=== PATIENT | female | born 1990 | race Caucasian/White ===

== ENCOUNTER → 2016-05-08 | Outpatient (CLI) | payer BC ==
--- NOTE | 2016-05-09 04:58 | REP ---
Clinical: Acute cystitis. Technique: Real time gallegos scale and color ultrasound examination using curved array transducer. Findings: The bilateral kidneys are normal in contour, size, echogenicity, and reniform shape without hydronephrosis, nephrolithiasis, cystic or renal mass lesion. Right kidney measures 10.0 x 4.1 x 3.4 cm. Left kidney measures 10.8 x 3.5 x 5.1 cm. The bladder is normal in appearance currently measuring approximately 8.8 x 6.4 x 2.7 cm. Impression: Normal renal ultrasound Incidental subcentimeter hemangioma in the liver. Signed by Masoud Tim MD 05/09/2016 04:49 A
== END ==
LOC: M RAD 13:29
PROVIDERS: ATTEND Specialist
DX: N30.00 Acute cystitis without hematuria (principal); D18.03 Hemangioma of intra-abdominal structures; Z87.440 Personal history of urinary (tract) infections

== ENCOUNTER → 2016-05-21 | Outpatient (REF) | payer BC ==
[2016-05-21 20:41] LABS: LUTEINIZING HORMONE 1.8 mIU/mL; PROGESTERONE 0.3 NG/ML; PROLACTIN 7.5 NG/ML
[2016-05-21 20:42] LABS: FOLLICLE STIMULATING HORMONE 1.4 mIU/mL
== END ==
LOC: M LAB REF 16:36
PROVIDERS: ATTEND Internal Medicine
DX: R68.82 Decreased libido (principal)

== ENCOUNTER → 2017-10-02 | Outpatient (REF) | payer BC ==
[2017-10-02 13:14] LABS: BACTERIA, URINE AUTO 1+ (NEGATIVE); RBC, URINE AUTO 0 /HPF (0-3); SQUAMOUS EPITHELIAL CELL UR AU 0 /HPF (0-6); WBC, URINE AUTO 2 /HPF (0-3)
== END ==
LOC: M SMT 12:32
DX: N30.00 Acute cystitis without hematuria (principal)
CPT/HCPCS: 81015

== ENCOUNTER → 2018-04-16 | Outpatient (REF) | payer BC ==
[2018-04-16 19:05] LABS: BACTERIA, URINE AUTO 1+ (NEGATIVE); CALCIUM OXALATE CRYSTALS SMALL; MUCUS, URINE SMALL (NEGATIVE); RBC, URINE AUTO 2 /HPF (0-3); SQUAMOUS EPITHELIAL CELL UR AU 0 /HPF (0-6); WBC, URINE AUTO 10 /HPF (0-3)
== END ==
LOC: M SMT 16:50
PROVIDERS: ATTEND Specialist
DX: N30.00 Acute cystitis without hematuria (principal)

== ENCOUNTER → 2018-10-13 | Outpatient (CLI) | payer BC ==
[2018-10-13 16:59] LABS: CHOLESTEROL RISK RATIO 3.383 (<5)
== END ==
LOC: M LRY 12:11
PROVIDERS: ATTEND Internal Medicine
DX: Z00.00 Encounter for general adult medical examination without abnormal findings (principal)

== ENCOUNTER → 2020-01-13 | Outpatient (CLI) | payer BC ==
[~2020-01-13] MED LIST: BACI1TAB4 PO; PREN1TAB9 PO
== END ==
LOC: M LABSMTC 09:58
PROVIDERS: ATTEND Anesthesiology
DX: Z01.812 Encounter for preprocedural laboratory examination (principal); Z20.828 Contact with and (suspected) exposure to other viral communicable diseases

== ENCOUNTER 2020-01-14 13:56 | Day surgery (SDC) | payer BC ==
[~2020-01-14] VITALS: Ht 157.5 cm; Wt 60.8 kg
[~2020-01-14 13:56] MED LIST changes: +LR 1,000 ML IV ONE; +RHOGAM 300 MCG (1500 IU) INJ (J2790) IM PRN
[2020-01-14 14:28] LABS: HEMATOCRIT 39.5 % (36.0-47.0); HEMOGLOBIN 13.3 g/dl (12.0-15.5); MEAN CORPUSCULAR HEMOGLOBIN 28.8 pg (27.0-33.0); MEAN CORPUSCULAR HGB CONC 33.7 g/dl (32.0-36.5); MEAN CORPUSCULAR VOLUME 85.5 fl (80.0-96.0); PLATELET COUNT, AUTOMATED 316 10^3/uL (150-450); RED BLOOD COUNT 4.62 10^6/uL (4.00-5.40); WHITE BLOOD COUNT 11.1 10^3/uL (4.0-10.0)
[2020-01-14] MEDS ORDERED: KETOROLAC 60MG 2ML VIAL As Ordered ONE (16:48)
[2020-01-14] MEDS ORDERED: propofoL 200 MG/20 ML VIAL As Ordered ONE ×2 (16:48→16:49)
[2020-01-14] MEDS ORDERED: dexameTHASONE 4 MG/ML 1ML VIAL (J1100 PER 1MG) As Ordered ONE (16:48)
[2020-01-14] MEDS ORDERED: LIDOCAINE 2% 100MG/5ML SDV (FOR ANES.) As Ordered ONE (16:48)
[2020-01-14] MEDS ORDERED: ONDANSETRON 4MG/2ML VIAL As Ordered ONE (16:48)
[2020-01-14] MEDS ORDERED: MIDAZOLAM INJ 2MG/2ML VIAL (J2250 PER 1MG) As Ordered ONE (16:49)
[2020-01-14] MEDS ORDERED: fentaNYL 100 MCG/2 ML INJECTION (J3010) As Ordered ONE (16:49)
[2020-01-14] MEDS ORDERED: miSOPROStol 200 MCG TAB (S0191) As Ordered ONE (18:12)
--- NOTE | 2020-01-14 18:39 | ROOPDOC ---
[facility] Report Of Operation Report of Operation DATE OF PROCEDURE: 01/14/20 PREPROCEDURE DIAGNOSES: Embryonic demise, 8 weeks. POSTPROCEDURE DIAGNOSES: same. PROCEDURE: D+E+C. SURGEON: Darron Fowler MD ANESTHESIA: general via LMA. ESTIMATED BLOOD LOSS: Approximately 200 mL. COMPLICATIONS: none. FINDINGS: moderate amount of POC's. PROCEDURE NOTE: Patient was taken to the operating room where LMA anesthesia was induced. She was prepped and draped in sterile fashion in the dorsal lithotomy position. The bladder was emptied with a catheter. A speculum was placed in the vagina. The anterior lip of the cervix grasped with a tenaculum. Cervix was dilated with tapered dilators. . A #9 mm suction curet was placed through the internal os. The suction device was activated and the curet was gently rotated until products of conception were noted coming through the suction tubing. Sharp curettage was performed. Due to moderate excess bleeding initially, the patient received 800 g of Misoprostal per rectum. Good hemostasis was then noted. All instruments were removed. Instrument and sponge counts were correct. DARRON FOWLER MD Jan 14, 2020 18:39
[2020-01-14] MEDS ORDERED: ACETAMINOPHEN 500 MG TAB PO ONE (19:00)
[2020-01-14] MEDS ORDERED: LR 1,000 ML IV SCH ×2 (19:00)
[2020-01-14] MEDS ORDERED: fentaNYL 100 MCG/2 ML INJECTION (J3010) IV PRN (19:00)
[2020-01-14] MEDS ORDERED: DOXYCYCLINE HYCLATE 100MG TABLET PO ONE (19:00)
[2020-01-14] MEDS ORDERED: ONDANSETRON 4MG/2ML VIAL IV PRN (19:00)
[2020-01-14] MEDS ORDERED: oxyCODONE 5MG TAB PO PRN (19:00)
[2020-01-14] MEDS ORDERED: HYDROMORPHONE HCL 0.5 MG/ 0.5 ML SYRINGE (J1170 PER 1) IV PRN (19:00)
[2020-01-14 19:30] VITALS: BP 133/83
== END 2020-01-14 19:50 | disposition home or self-care (01) ==
LOC: M SDC 13:56
PROVIDERS: ATTEND Specialist
DX: O02.1 Missed abortion (principal); Z87.440 Personal history of urinary (tract) infections
CPT/HCPCS: 36415; 59820; 85027; 86850; 86900; 86901; 88305; J1100; J1885; J2250; J2405; J3010; U0002

== ENCOUNTER 2020-05-24 10:55 | Emergency (ER) | payer BC ==
[~2020-05-24] VITALS: Ht 157.5 cm; Wt 63.8 kg
[~2020-05-24 10:55] MED LIST changes: -LR 1,000 ML IV ONE; -RHOGAM 300 MCG (1500 IU) INJ (J2790) IM PRN
[2020-05-24] MEDS ORDERED: VITA500C24 PO (11:09)
[2020-05-24] MEDS ORDERED: ASPI81CH33 PO (11:09)
[2020-05-24 12:27] LABS: BASO % 0.5 % (0.0-1.0); EOS # 0.1 10^3/uL (0.0-0.5); EOS % 0.9 % (0.0-3.0); HEMATOCRIT 41.6 % (36.0-47.0); HEMOGLOBIN 14.2 g/dl (12.0-15.5); LYMPH # 2.6 10^3/uL (1.5-5.0); LYMPH % 30.4 % (24.0-44.0); MEAN CORPUSCULAR HEMOGLOBIN 29.2 pg (27.0-33.0); MEAN CORPUSCULAR HGB CONC 34.1 g/dl (32.0-36.5); MEAN CORPUSCULAR VOLUME 85.6 fl (80.0-96.0); MONO # 0.5 10^3/uL (0.0-0.8); NEUTROPHILS # 5.3 10^3/uL (1.5-8.5); PLATELET COUNT, AUTOMATED 326 10^3/uL (150-450); RED BLOOD COUNT 4.86 10^6/uL (4.00-5.40); WHITE BLOOD COUNT 8.6 10^3/uL (4.0-10.0)
[2020-05-24 12:51] LABS: BLOOD UREA NITROGEN 9 MG/DL (7-18); CALCIUM LEVEL 9.7 MG/DL (8.5-10.1); CARBON DIOXIDE LEVEL 24 MEQ/L (21-32); CHLORIDE LEVEL 107 MEQ/L (98-107); CREATININE FOR GFR 0.69 MG/DL (0.55-1.30); GLOMERULAR FILTRATION RATE > 60.0 (>60); GLUCOSE, FASTING 87 MG/DL (70-100); POTASSIUM SERUM 4.1 MEQ/L (3.5-5.1); SODIUM LEVEL 138 MEQ/L (136-145)
[2020-05-24 13:14] LABS: HCG, SERUM QUANTITATIVE 794 MIU/ML
--- NOTE | 2020-05-24 13:39 | REP ---
INDICATION: rlq pain preg. COMPARISON: None. TECHNIQUE: Real-time sonographic evaluation of pelvis performed utilizing transabdominal and endovaginal technique. FINDINGS: The uterus is retroverted and measures 7.7 x 3.8 x 4.9 cm. Endometrial echo complex measures 8 mm in thickness. There is no intrauterine gestational sac identified. The left ovary measures 2.8 x 2.4 x 2.4 cm and contains a somewhat complex cystic structure which may represent a hemorrhagic corpus luteum, measuring 2.5 cm in diameter. Right ovary measures 2.6 x 1.8 x 2.1 cm. There is no evidence of ovarian torsion bilaterally. In the right adnexa, separate from the right ovary, is a rounded structure with a cystic center which measures 1.2 cm in diameter. This is suspicious for ectopic . There is no free fluid. IMPRESSION: Right adnexal mass 1.2 cm in diameter suspicious for ectopic . No intrauterine gestational sac. No free fluid or torsion. <Electronically signed by Alonso Hirsch > 05/24/20 0600
[2020-05-24 14:01] VITALS: BP 131/91
== END 2020-05-24 14:04 | disposition home or self-care (01) ==
LOC: M ED 10:55
DX: O00.90 Unspecified ectopic pregnancy without intrauterine pregnancy (principal); Z79.899 Other long term (current) drug therapy

== ENCOUNTER → 2020-05-26 | Outpatient (REF) | payer BC ==
[~2020-05-26] MED LIST changes: +ASPI81CH33 PO; +VITA500C24 PO
== END ==
LOC: M PLALAB 12:17
PROVIDERS: ATTEND Advanced Practice Midwife
DX: O20.0 Threatened abortion (principal)

== ENCOUNTER → 2020-05-26 | Outpatient (CLI) | payer BC | LOC: M LAB 06:43 | PROVIDERS: ATTEND Nurse Practitioner Family | DX: O20.0 Threatened abortion (principal) ==

== ENCOUNTER → 2020-06-05 | Outpatient (CLI) | payer BC | LOC: M LAB 06:42 | PROVIDERS: ATTEND Advanced Practice Midwife | DX: O03.9 Complete or unspecified spontaneous abortion without complication (principal) ==

== ENCOUNTER → 2020-06-12 | Outpatient (CLI) | payer BC | LOC: M LAB 07:03 | PROVIDERS: ATTEND Advanced Practice Midwife | DX: O03.9 Complete or unspecified spontaneous abortion without complication (principal) ==

== ENCOUNTER → 2020-08-14 | Outpatient (REF) | payer BC | LOC: M LAB REF 18:42 | PROVIDERS: ATTEND Family Medicine | DX: Z13.220 Encounter for screening for lipoid disorders (principal); Z12.4 Encounter for screening for malignant neoplasm of cervix ==

== ENCOUNTER → 2020-08-18 | Outpatient (CLI) | payer BC ==
[2020-08-18 07:17] LABS: BASO % 0.6 % (0.0-1.0); EOS # 0.2 10^3/uL (0.0-0.5); EOS % 3.2 % (0.0-3.0); HEMATOCRIT 42.6 % (36.0-47.0); HEMOGLOBIN 14.1 g/dl (12.0-15.5); LYMPH # 2.4 10^3/uL (1.5-5.0); LYMPH % 35.6 % (24.0-44.0); MEAN CORPUSCULAR HEMOGLOBIN 29.3 pg (27.0-33.0); MEAN CORPUSCULAR HGB CONC 33.1 g/dl (32.0-36.5); MEAN CORPUSCULAR VOLUME 88.6 fl (80.0-96.0); MONO # 0.6 10^3/uL (0.0-0.8); MONO % 8.4 % (2.0-8.0); NEUTROPHILS # 3.5 10^3/uL (1.5-8.5); NEUTROPHILS % 52.1 % (36.0-66.0); PLATELET COUNT, AUTOMATED 301 10^3/uL (150-450); RED BLOOD COUNT 4.81 10^6/uL (4.00-5.40); WHITE BLOOD COUNT 6.8 10^3/uL (4.0-10.0)
[2020-08-18 07:55] LABS: ALBUMIN 4.2 GM/DL (3.2-5.2); ALT/SGPT 20 U/L (12-78); BILIRUBIN,TOTAL 0.3 MG/DL (0.2-1.0); BLOOD UREA NITROGEN 15 MG/DL (7-18); CALCIUM LEVEL 9.1 MG/DL (8.5-10.1); CARBON DIOXIDE LEVEL 27 MEQ/L (21-32); CHLORIDE LEVEL 106 MEQ/L (98-107); CHOLESTEROL LEVEL 196 MG/DL (<200); CREATININE FOR GFR 0.87 MG/DL (0.55-1.30); FREE T4 1.22 NG/DL (0.76-1.46); GLOMERULAR FILTRATION RATE > 60.0 (>60); GLUCOSE, FASTING 90 MG/DL (70-100); HDL CHOLESTEROL 47 MG/DL (>40); LDL CHOLESTEROL 128 MG/DL (<100); NON-HDL-C 149 MG/DL; POTASSIUM SERUM 3.8 MEQ/L (3.5-5.1); SODIUM LEVEL 138 MEQ/L (136-145); TOTAL PROTEIN 8.3 GM/DL (6.4-8.2); TRIGLYCERIDES LEVEL 105 MG/DL (<150)
[2020-08-18 09:36] LABS: TOTAL 25(OH) VITAMIN D 65.4 NG/ML (30.0-100.0)
== END ==
LOC: M LAB 06:51
PROVIDERS: ATTEND Physician Assistant
DX: Z13.220 Encounter for screening for lipoid disorders (principal); Z13.29 Encounter for screening for other suspected endocrine disorder

== ENCOUNTER → 2020-09-19 | Outpatient (CLI) | payer BC ==
[2020-09-19 08:34] LABS: PROGESTERONE 34.57 NG/ML; THYROID STIMULATING HORMONE 1.32 uIU/ML (0.358-3.740)
[2020-09-19 08:35] LABS: ESTRADIOL 173.8 PG/ML
== END ==
LOC: M LAB 07:12
PROVIDERS: ATTEND Obstetrics & Gynecology Reproductive Endocrinology
DX: Z32.00 Encounter for pregnancy test, result unknown (principal)

== ENCOUNTER → 2020-09-21 | Outpatient (CLI) | payer BC ==
[2020-09-21 08:14] LABS: ESTRADIOL 212.2 PG/ML; PROGESTERONE 30.8 NG/ML
== END ==
LOC: M LAB 06:48
PROVIDERS: ATTEND Obstetrics & Gynecology Reproductive Endocrinology
DX: O09.00 Supervision of pregnancy with history of infertility, unspecified trimester (principal)

== ENCOUNTER → 2020-11-16 | Outpatient (CLI) | payer BC ==
[2020-11-16 15:06] LABS: HEMATOCRIT 39.3 % (36.0-47.0); HEMOGLOBIN 13.3 g/dl (12.0-15.5); MEAN CORPUSCULAR HGB CONC 33.8 g/dl (32.0-36.5); MEAN CORPUSCULAR VOLUME 85.6 fl (80.0-96.0); PLATELET COUNT, AUTOMATED 272 10^3/uL (150-450); RED BLOOD COUNT 4.59 10^6/uL (4.00-5.40); WHITE BLOOD COUNT 11.1 10^3/uL (4.0-10.0)
[2020-11-16 16:24] LABS: GC DNA AMPLIFICATION NEGATIVE (NEGATIVE)
[2020-11-16 16:26] LABS: HEPATITIS C VIRUS ABY INDEX 0.1 INDEX (<0.8); HIV 1&2 SCREEN CENTAUR NEGATIVE (NEGATIVE)
== END ==
LOC: M PLALAB 11:27
PROVIDERS: ATTEND Specialist
DX: Z34.01 Encounter for supervision of normal first pregnancy, first trimester (principal); Z3A.00 Weeks of gestation of pregnancy not specified

== ENCOUNTER → 2021-01-10 | Outpatient (CLI) | payer BC ==
--- NOTE | 2021-01-10 08:49 | REP ---
INDICATION: ANATOMY COMPARISON: None TECHNIQUE: Transabdominal obstetrical ultrasound with color Doppler evaluation. FINDINGS: Examination demonstrates a single live intrauterine in transverse presentation. motion is identified by technologist. Placenta is noted posterior, low lying and grade 1 measuring approximately 13 mm from the closed internal os. Amniotic fluid volume is normal. Cervix measures 4.1 cm in length and appears closed.. Selected gestational age: 19 weeks 6 days with JULIA 05/31/2021. Gestational age by current measurements 19 weeks 6 days with JULIA 05/31/2021. FHR equals 146 beats per minute. Estimated weight 319 grams (47thpercentile). Anatomical assessment demonstrates normal structures including cranium, choroid plexus, cavum, cerebellum/posterior fossa, facial features, lungs, diaphragm, stomach, cord insertion/three-vessel cord, kidneys/bladder, spine, and extremities. IMPRESSION: 1. Single live intrauterine in transverse lie demonstrating appropriate estimated weight. 2. Low lying grade 1 placenta. 3. Limited evaluation of the heart/ventricular outflow tracts may warrant re-evaluation. Remainder of the anatomical assessment is complete and normal. <Electronically signed by Masoud Tim > 01/10/21 [id number]
== END ==
LOC: M WHC 06:46
PROVIDERS: ATTEND Specialist
DX: Z34.82 Encounter for supervision of other normal pregnancy, second trimester (principal); Z3A.20 20 weeks gestation of pregnancy

== ENCOUNTER → 2021-02-01 | Outpatient (CLI) | payer BC ==
--- NOTE | 2021-02-01 09:31 | REP ---
INDICATION: ANATOMY F/U COMPARISON: 01/10/2021 TECHNIQUE: Transabdominal obstetrical ultrasound with color Doppler evaluation. FINDINGS: Examination demonstrates a single live intrauterine in cephalic presentation. motion is identified by technologist. Placenta is low lying, posterior and grade 1. Amniotic fluid volume is normal. Cervix measures 3.7 cm in length and appears closed.. Selected gestational age: 23 weeks 0 days with JULIA 05/31/2021. Gestational age by current measurements 23 weeks 2 days with JULIA 05/29/2021. FHR equals 147 beats per minute. Estimated weight 576 grams (54thpercentile). Anatomical assessment is limited and images of the heart/ventricular outflow tracts are again incomplete due to positioning. IMPRESSION: Single live intrauterine in cephalic presentation. Grade 1 low lying placenta measuring roughly 10 mm from the closed internal os. Continued incomplete evaluation of the heart/ventricular outflow tracts due to positioning. <Electronically signed by Masoud Tim > 02/01/21 0949
== END ==
LOC: M WHC 07:02
PROVIDERS: ATTEND Advanced Practice Midwife
DX: Z34.92 Encounter for supervision of normal pregnancy, unspecified, second trimester (principal); Z3A.23 23 weeks gestation of pregnancy

== ENCOUNTER → 2021-02-21 | Outpatient (REF) | payer BC ==
[2021-02-21 12:09] LABS: RSV AMPLIFICATION NEGATIVE (NEGATIVE)
== END ==
LOC: M LAB REF 09:59
PROVIDERS: ATTEND Nurse Practitioner Family
DX: Z20.822 Contact with and (suspected) exposure to COVID-19 (principal)

== ENCOUNTER → 2021-03-01 | Outpatient (CLI) | payer BC | LOC: M WHC 07:25 | PROVIDERS: ATTEND Advanced Practice Midwife | DX: Z34.93 Encounter for supervision of normal pregnancy, unspecified, third trimester (principal); Z3A.27 27 weeks gestation of pregnancy ==

== ENCOUNTER → 2021-03-27 | Outpatient (CLI) | payer BC | LOC: M LAB 07:02 | PROVIDERS: ATTEND Obstetrics & Gynecology | DX: O99.810 Abnormal glucose complicating pregnancy (principal); Z3A.00 Weeks of gestation of pregnancy not specified ==

== ENCOUNTER → 2021-03-28 | Outpatient (CLI) | payer BC | LOC: M WHC 07:21 | PROVIDERS: ATTEND Obstetrics & Gynecology | DX: O44.43 Low lying placenta NOS or without hemorrhage, third trimester (principal); Z3A.30 30 weeks gestation of pregnancy ==

== ENCOUNTER → 2021-05-07 | Outpatient (REF) | payer BC | LOC: M SFHCWAGY 12:47 | PROVIDERS: ATTEND Obstetrics & Gynecology | DX: Z36.85 Encounter for antenatal screening for Streptococcus B (principal) ==

== ENCOUNTER 2021-06-02 02:23 | Inpatient (IN) | payer BC ==
[2021-06-02] VITALS (32 sets, daily range): BP systolic 114–149; BP diastolic 60–93
[~2021-06-02] VITALS: Ht 157.5 cm; Wt 74.7 kg
[2021-06-02] MEDS ORDERED: COLA100C5 PO (02:42)
[2021-06-02] MEDS ORDERED: HOME MED LIST COMPLETE! XX SCH (02:55)
[2021-06-02] MEDS ORDERED: LACTATED RINGER'S 1000 ML IV STA (03:18)
[2021-06-02] MEDS ORDERED: PENICILLIN G POTASSIUM IV 5 MU in D5W MINI-BAG PLUS 100 ML IV STA (03:18)
[2021-06-02] MEDS ORDERED: OXYTOCIN DRIP 30 UNITS in IV 1 EA IV PRN ×4 (03:20)
[2021-06-02] MEDS ORDERED: CARBOPROST TROMETHAMINE 250 MCG/ML AMP IM PRN (03:20)
[2021-06-02] MEDS ORDERED: METHYLERGONOVINE MALEATE 0.2 MG/ML VIAL (J2210) IM PRN (03:20)
[2021-06-02] MEDS ORDERED: TRANEXAMIC ACID INJection 1,000 MG in NS 100 ML IV PRN (03:20)
[2021-06-02 03:30] LABS: HEMOGLOBIN 12.5 g/dl (12.0-15.5); MEAN CORPUSCULAR HEMOGLOBIN 30.9 pg (27.0-33.0); MEAN CORPUSCULAR HGB CONC 35.7 g/dl (32.0-36.5); MEAN CORPUSCULAR VOLUME 86.6 fl (80.0-96.0); PLATELET COUNT, AUTOMATED 240 10^3/uL (150-450); RED BLOOD COUNT 4.04 10^6/uL (4.00-5.40); WHITE BLOOD COUNT 17.1 10^3/uL (4.0-10.0)
[2021-06-02] MEDS ORDERED: FENTANYL 2MCG/ML ROPIVACAINE 0.2% IN 0.9% NACL 100ML IVBAG As Ordered ONE (03:58)
[2021-06-02] MEDS ORDERED: REFRIGERATOR IV KEYS XX PRN (04:35)
[2021-06-02] MEDS ORDERED: ePHEDrine SULFATE 25 MG/5 ML(5MG/ML) SYRINGE IV PRN (04:35)
[2021-06-02] MEDS ORDERED: EPIDURAL/PCA KEYS XX PRN (04:35)
[2021-06-02] MEDS ORDERED: LACTATED RINGER'S 1000 ML IV PRN (04:35)
[2021-06-02] MEDS ORDERED: FENTANYL/ROPIVACAINE/NACL BAG 100 ML EPIDURAL SCH (04:35)
[2021-06-02] MEDS ORDERED: ONDANSETRON 4MG/2ML VIAL IV PRN ×3 (04:35→12:30)
[2021-06-02] MEDS ORDERED: EPIDURAL COMMENT XX SCH (04:35)
[2021-06-02] MEDS ORDERED: NALOXONE INJ 0.4MG/1ML VIAL (J2310 PER 1MG) IV PRN ×3 (04:35→11:00)
[2021-06-02] MEDS ORDERED: diphenhydrAMINE 50MG/ML VIAL (J1200) IV PRN ×2 (04:35→11:00)
[2021-06-02] MEDS ORDERED: ceFAZolin SOD 2 GM in IV 1 EA IV ONE (06:00)
[2021-06-02] MEDS ORDERED: OXYTOCIN DRIP 30 UNITS in IV 1 EA IV SCH ×2 (06:35→12:20)
[2021-06-02] MEDS ORDERED: PENICILLIN G POTASSIUM IV 2.5 MU in IV 1 EA IV SCH (08:00)
[2021-06-02] MEDS: PRENATAL VITAMINS CHEWABLE TABLET PO SCH (09:00)
[2021-06-02] MEDS ORDERED: BICITRA 30ML SOLN UDC PO ONE (10:40)
[2021-06-02] MEDS ORDERED: AZITHROMYCIN INJ 500 MG, VIAL MATE ADAPTER 1 EACH in NS 250 ML IV ONE (10:40)
[2021-06-02] MEDS ORDERED: LIDOCAINE 2% W/EPINEPHRINE 20ML VIAL **PRES FREE As Ordered ONE (10:42)
[2021-06-02] MEDS ORDERED: ceFAZolin 2 GM/D5W 50 ML IV BAG (J0690 PER 500MG) As Ordered ONE (10:43)
[2021-06-02] MEDS ORDERED: AZITHROMYCIN INJ 500MG VIAL As Ordered ONE (10:44)
[2021-06-02] MEDS ORDERED: BICITRA 30ML SOLN UDC As Ordered ONE (10:44)
[2021-06-02] MEDS ORDERED: OXYTOCIN 30 UNITS IN 0.9% NaCl 500ML IV BAG (J2590) As Ordered ONE (10:44)
[2021-06-02] MEDS ORDERED: MORPHINE PRES-FREE INJ 10 MG/10 ML VIAL As Ordered ONE (10:46)
[2021-06-02] MEDS ORDERED: METOCLOPRAMIDE INJ 10MG/2ML VIAL (J2765 PER 1) IV PRN (11:00)
[2021-06-02] MEDS ORDERED: ONDANSETRON 4MG/2ML VIAL As Ordered ONE (11:06)
[2021-06-02] MEDS ORDERED: dexameTHASONE 4 MG/ML 1ML VIAL (J1100 PER 1MG) As Ordered ONE (11:07)
[2021-06-02] MEDS ORDERED: PHENYLephrine 500MCG 5ML (100MCG/ML) SYRINGE As Ordered ONE (11:11)
[2021-06-02] MEDS ORDERED: KETOROLAC 60MG 2ML VIAL As Ordered ONE (11:11)
[2021-06-02] MEDS ORDERED: ACETAMINOPHEN 1000MG 100ML IV BTL (OFIRMEV) (J0131 PER 10MG) As Ordered ONE (11:19)
[2021-06-02] MEDS ORDERED: DOCUSATE SODIUM 100MG CAPSULE PO PRN (12:20)
[2021-06-02] MEDS ORDERED: SIMETHICONE 80MG CHEW TAB PO PRN (12:20)
[2021-06-02] MEDS ORDERED: oxyCODONE 5MG TAB PO PRN ×3 (12:20→12:30)
[2021-06-02] MEDS ORDERED: RHOGAM 300 MCG (1500 IU) INJ (J2790) IM SCH (12:20)
[2021-06-02] MEDS ORDERED: MEASLES,MUMPS,RUBELLA VACCINE INJ (MMR-II) (90707) SC SCH (12:20)
[2021-06-02] MEDS ORDERED: HYDROMORPHONE HCL 0.5 MG/ 0.5 ML SYRINGE (J1170 PER 1) IV PRN (12:30)
[2021-06-02] MEDS ORDERED: MEPERIDINE INJ 25 MG/ML VIAL (J2175) IV PRN (12:30)
[2021-06-02] MEDS ORDERED: fentaNYL 100 MCG/2 ML INJECTION IV PRN (12:30)
[2021-06-02] MEDS: LR 1,000 ML IV SCH (16:50)
[2021-06-02] MEDS: ACETAMINOPHEN 500 MG TAB PO SCH (17:45)
[2021-06-02] MEDS: KETOROLAC 30 MG/ML 1ML VIAL IV SCH (17:46)
[2021-06-03] MEDS: LR 1,000 ML IV SCH (00:38)
[2021-06-03] MEDS: ACETAMINOPHEN 500 MG TAB PO SCH ×4 (00:39→17:16)
[2021-06-03] MEDS: KETOROLAC 30 MG/ML 1ML VIAL IV SCH ×2 (00:40→05:45)
[2021-06-03 02:00] VITALS: BP 111/53
[2021-06-03 06:00] VITALS: BP 107/54
[2021-06-03 07:38] LABS: HEMATOCRIT 25.8 % (36.0-47.0); MEAN CORPUSCULAR HEMOGLOBIN 30.3 pg (27.0-33.0); MEAN CORPUSCULAR HGB CONC 33.7 g/dl (32.0-36.5); MEAN CORPUSCULAR VOLUME 89.9 fl (80.0-96.0); PLATELET COUNT, AUTOMATED 203 10^3/uL (150-450); RED BLOOD COUNT 2.87 10^6/uL (4.00-5.40); WHITE BLOOD COUNT 14.4 10^3/uL (4.0-10.0)
[2021-06-03 07:49] LABS: HEMOGLOBIN 8.7 g/dl (12.0-15.5)
[2021-06-03] MEDS: PRENATAL VITAMINS CHEWABLE TABLET PO SCH (09:23)
[2021-06-03 10:07] VITALS: BP 116/60
[2021-06-03] MEDS ORDERED: COLA100C5 PO (11:15)
[2021-06-03] MEDS ORDERED: OXYC-517 PO (11:15)
[2021-06-03] MEDS ORDERED: ACET-683 PO (11:15)
[2021-06-03] MEDS ORDERED: IBUP-1022 PO (11:15)
[2021-06-03 14:00] VITALS: BP 117/63
[2021-06-03] MEDS: IBUPROFEN 600MG TAB PO SCH ×2 (14:00→20:19)
[2021-06-03 18:15] VITALS: BP 119/65
[2021-06-03 22:00] VITALS: BP 125/73
[2021-06-04] MEDS: ACETAMINOPHEN 500 MG TAB PO SCH ×3 (00:04→12:26)
[2021-06-04 02:00] VITALS: BP 126/69
[2021-06-04] MEDS: IBUPROFEN 600MG TAB PO SCH ×2 (02:07→08:14)
[2021-06-04 06:00] VITALS: BP 139/86
[2021-06-04] MEDS: PRENATAL VITAMINS CHEWABLE TABLET PO SCH (08:14)
[2021-06-04 10:00] VITALS: BP 128/72
== END 2021-06-04 13:30 | disposition home or self-care (01) | DRG 540 ==
LOC: M LDO 02:23 → M LDI 03:06 → M OBS 14:20
PROVIDERS: ADMIT Obstetrics & Gynecology; ATTEND Obstetrics & Gynecology
PROC: 10D00Z1 Extraction of Products of Conception, Low, Open Approach (ICD-10-PCS; principal; 2021-06-02)
PROC: 3E0 Administration, Physiological Systems and Anatomical Regions, Introduction (ICD-10-PCS; 2021-06-02)
DX: O48.0 Post-term pregnancy (principal); Z37.0 Single live birth; Z3A.40 40 weeks gestation of pregnancy; O76 Abnormality in fetal heart rate and rhythm complicating labor and delivery; O77.0 Labor and delivery complicated by meconium in amniotic fluid

== ENCOUNTER → 2022-03-28 | Outpatient (CLI) | payer BC ==
[~2022-03-28] MED LIST changes: +ACET-683 PO; +COLA100C5 PO; +IBUP-1022 PO; +OXYC-517 PO
[2022-03-28 07:42] LABS: BASO % 0.6 % (0.0-1.0); EOS # 0.3 10^3/uL (0.0-0.5); EOS % 4.2 % (0.0-3.0); HEMATOCRIT 41.6 % (36.0-47.0); HEMOGLOBIN 13.7 g/dl (12.0-15.5); LYMPH # 2.4 10^3/uL (1.5-5.0); LYMPH % 36.4 % (24.0-44.0); MEAN CORPUSCULAR HGB CONC 32.9 g/dl (32.0-36.5); MEAN CORPUSCULAR VOLUME 85.1 fl (80.0-96.0); MONO # 0.5 10^3/uL (0.0-0.8); MONO % 7.4 % (2.0-8.0); NEUTROPHILS # 3.4 10^3/uL (1.5-8.5); NEUTROPHILS % 51.2 % (36.0-66.0); PLATELET COUNT, AUTOMATED 324 10^3/uL (150-450); RED BLOOD COUNT 4.89 10^6/uL (4.00-5.40); WHITE BLOOD COUNT 6.6 10^3/uL (4.0-10.0)
[2022-03-28 08:09] LABS: HEMOGLOBIN A1c 4.9 % (4.0-6.0)
[2022-03-28 08:12] LABS: FREE T4 1.11 NG/DL (0.89-1.76); THYROID STIMULATING HORMONE 1.847 uIU/ML (0.55-4.78)
[2022-03-28 08:15] LABS: ALBUMIN 4.3 G/DL (3.2-5.2); ALKALINE PHOSPHATASE 83 U/L (46-116); ALT/SGPT 11 U/L (7.0-40); AST/SGOT 22 U/L (<34); BILIRUBIN,TOTAL 0.5 MG/DL (0.3-1.2); BLOOD UREA NITROGEN 13 MG/DL (9-23); CALCIUM LEVEL 9.1 MG/DL (8.5-10.1); CARBON DIOXIDE LEVEL 26 MMOL/L (20-31); CHLORIDE LEVEL 106 MMOL/L (98-107); CHOLESTEROL LEVEL 189 MG/DL (<200); GLOMERULAR FILTRATION RATE > 60.0 (>60); GLUCOSE, FASTING 90 MG/DL (60-100); HDL CHOLESTEROL 43.9 MG/DL (>40); LDL CHOLESTEROL 116.9 MG/DL (<100); NON-HDL-C 145 MG/DL; POTASSIUM SERUM 4.4 MMOL/L (3.5-5.1); SODIUM LEVEL 139 MMOL/L (136-145); TOTAL PROTEIN 7.6 G/DL (5.7-8.2); TRIGLYCERIDES LEVEL 141 MG/DL (<150)
== END ==
LOC: M LAB 07:14
PROVIDERS: ATTEND Physician Assistant
DX: Z13.29 Encounter for screening for other suspected endocrine disorder (principal); Z13.220 Encounter for screening for lipoid disorders

== ENCOUNTER → 2022-03-28 | Outpatient (CLI) | payer BC | LOC: M WHC 09:02 | PROVIDERS: ATTEND Physician Assistant | DX: N63.41 Unspecified lump in right breast, subareolar (principal) | CPT/HCPCS: 76642; 77066; G0279 ==

== ENCOUNTER → 2022-05-22 | Outpatient (CLI) | payer BC ==
[2022-05-22 14:29] LABS: ALBUMIN 4.3 G/DL (3.2-5.2); ALKALINE PHOSPHATASE 74 U/L (46-116); ALT/SGPT 14 U/L (7.0-40); AST/SGOT 15 U/L (<34); BILIRUBIN,TOTAL 0.4 MG/DL (0.3-1.2); BLOOD UREA NITROGEN 12 MG/DL (9-23); CALCIUM LEVEL 9.4 MG/DL (8.5-10.1); CARBON DIOXIDE LEVEL 28 MMOL/L (20-31); CHLORIDE LEVEL 105 MMOL/L (98-107); CREATININE FOR GFR 0.82 MG/DL (0.55-1.30); GLOMERULAR FILTRATION RATE > 60.0 (>60); GLUCOSE, FASTING 81 MG/DL (60-100); POTASSIUM SERUM 4.5 MMOL/L (3.5-5.1); PROLACTIN 3.02 NG/ML; SODIUM LEVEL 140 MMOL/L (136-145); THYROID STIMULATING HORMONE 1.279 uIU/ML (0.55-4.78); TOTAL PROTEIN 7.7 G/DL (5.7-8.2)
[2022-05-22 14:31] LABS: FREE T4 1.14 NG/DL (0.89-1.76)
== END ==
LOC: M PLALAB 09:30
PROVIDERS: ATTEND Nurse Practitioner Family
DX: N92.6 Irregular menstruation, unspecified (principal)

== ENCOUNTER → 2022-06-12 | Outpatient (REF) | payer BC | LOC: M LAB REF 16:46 | PROVIDERS: ATTEND Physician Assistant | DX: N76.0 Acute vaginitis (principal) ==

== ENCOUNTER → 2023-11-04 | Outpatient (CLI) | payer BC ==
[2023-11-04 07:15] LABS: HCG, SERUM QUANTITATIVE 5.1 MIU/ML (<4.2)
[2023-11-04 07:20] LABS: PROGESTERONE 11.45 NG/ML
== END ==
LOC: M LAB 06:18
PROVIDERS: ATTEND Obstetrics & Gynecology Reproductive Endocrinology
DX: Z32.00 Encounter for pregnancy test, result unknown (principal)

== ENCOUNTER → 2023-11-06 | Outpatient (CLI) | payer BC ==
[2023-11-06 07:24] LABS: THYROID STIMULATING HORMONE 1.7 uIU/ML (0.55-4.78)
[2023-11-06 07:25] LABS: PROGESTERONE 15.13 NG/ML
== END ==
LOC: M LAB 06:16
PROVIDERS: ATTEND Obstetrics & Gynecology Reproductive Endocrinology
DX: Z32.01 Encounter for pregnancy test, result positive (principal)

== ENCOUNTER → 2023-11-10 | Outpatient (CLI) | payer BC ==
[2023-11-10 07:07] LABS: HCG, SERUM QUANTITATIVE 56.1 MIU/ML (<4.2)
[2023-11-10 07:11] LABS: ESTRADIOL 72.8 PG/ML; PROGESTERONE 15.83 NG/ML
== END ==
LOC: M LAB 06:15
PROVIDERS: ATTEND Obstetrics & Gynecology Reproductive Endocrinology
DX: Z32.01 Encounter for pregnancy test, result positive (principal)

== ENCOUNTER → 2023-11-12 | Outpatient (CLI) | payer BC ==
[2023-11-12 07:14] LABS: HCG, SERUM QUANTITATIVE 150.4 MIU/ML (<4.2)
[2023-11-12 07:18] LABS: ESTRADIOL 125.8 PG/ML
[2023-11-12 07:19] LABS: PROGESTERONE 17.69 NG/ML
== END ==
LOC: M LAB 06:08
PROVIDERS: ATTEND Obstetrics & Gynecology Reproductive Endocrinology
DX: Z32.01 Encounter for pregnancy test, result positive (principal)

== ENCOUNTER → 2023-11-14 | Outpatient (CLI) | payer BC ==
[2023-11-14 07:11] LABS: HCG, SERUM QUANTITATIVE 130.2 MIU/ML (<4.2)
[2023-11-14 07:14] LABS: ESTRADIOL 100.8 PG/ML
[2023-11-14 07:16] LABS: PROGESTERONE 16.21 NG/ML
== END ==
LOC: M LAB 06:23
PROVIDERS: ATTEND Obstetrics & Gynecology Reproductive Endocrinology
DX: Z32.01 Encounter for pregnancy test, result positive (principal)

== ENCOUNTER → 2023-11-17 | Outpatient (CLI) | payer BC ==
[2023-11-17 10:06] LABS: HCG, SERUM QUANTITATIVE 30.4 MIU/ML (<4.2)
[2023-11-17 10:10] LABS: ESTRADIOL 38.2 PG/ML
[2023-11-17 10:11] LABS: PROGESTERONE 1.22 NG/ML
== END ==
LOC: M LAB 09:02
PROVIDERS: ATTEND Obstetrics & Gynecology Reproductive Endocrinology
DX: O02.81 Inappropriate change in quantitative human chorionic gonadotropin (hCG) in early pregnancy (principal)

== ENCOUNTER → 2023-11-24 | Outpatient (CLI) | payer BC | LOC: M LAB 08:16 | PROVIDERS: ATTEND Obstetrics & Gynecology Reproductive Endocrinology | DX: O02.1 Missed abortion (principal) ==

== ENCOUNTER → 2023-12-25 | Outpatient (CLI) | payer BC ==
[2023-12-25 07:27] LABS: HCG, SERUM QUANTITATIVE 56.8 MIU/ML (<4.2)
[2023-12-25 07:31] LABS: PROGESTERONE 40.33 NG/ML; THYROID STIMULATING HORMONE 2.827 uIU/ML (0.55-4.78)
[2023-12-25 07:32] LABS: ESTRADIOL 159.8 PG/ML
== END ==
LOC: M LAB 06:29
PROVIDERS: ATTEND Obstetrics & Gynecology Reproductive Endocrinology
DX: Z32.00 Encounter for pregnancy test, result unknown (principal)

== ENCOUNTER → 2023-12-27 | Outpatient (CLI) | payer BC ==
[2023-12-27 10:39] LABS: HCG, SERUM QUANTITATIVE 179.7 MIU/ML (<4.2)
[2023-12-27 10:42] LABS: THYROID STIMULATING HORMONE 1.649 uIU/ML (0.55-4.78)
[2023-12-27 10:43] LABS: ESTRADIOL 212.3 PG/ML; PROGESTERONE 42.57 NG/ML
== END ==
LOC: M LAB 09:12
PROVIDERS: ATTEND Obstetrics & Gynecology Reproductive Endocrinology
DX: Z32.00 Encounter for pregnancy test, result unknown (principal)

== ENCOUNTER → 2023-12-30 | Outpatient (CLI) | payer BC ==
[2023-12-30 07:22] LABS: ESTRADIOL 242.2 PG/ML; PROGESTERONE 38.9 NG/ML
== END ==
LOC: M LAB 06:12
PROVIDERS: ATTEND Obstetrics & Gynecology Reproductive Endocrinology
DX: Z32.01 Encounter for pregnancy test, result positive (principal); Z3A.00 Weeks of gestation of pregnancy not specified

== ENCOUNTER 2024-03-07 19:40 | Emergency (ER) | payer BC ==
[~2024-03-07] VITALS: Ht 157.5 cm; Wt 63.5 kg
[2024-03-07 20:14] LABS: BASO % 0.3 % (0.0-1.0); EOS # 0.1 10^3/uL (0.0-0.5); EOS % 1.2 % (0.0-3.0); HEMOGLOBIN 12.2 g/dl (12.0-15.5); LYMPH # 2.9 10^3/uL (1.5-5.0); LYMPH % 25.5 % (24.0-44.0); MEAN CORPUSCULAR HEMOGLOBIN 29.5 pg (27.0-33.0); MEAN CORPUSCULAR HGB CONC 34.9 g/dl (32.0-36.5); MEAN CORPUSCULAR VOLUME 84.7 fl (80.0-96.0); MONO # 0.6 10^3/uL (0.0-0.8); MONO % 4.9 % (2.0-8.0); NEUTROPHILS # 7.6 10^3/uL (1.5-8.5); NEUTROPHILS % 67.8 % (36.0-66.0); PLATELET COUNT, AUTOMATED 274 10^3/uL (150-450); RED BLOOD COUNT 4.13 10^6/uL (4.00-5.40); WHITE BLOOD COUNT 11.2 10^3/uL (4.0-10.0)
[2024-03-07 20:40] LABS: BLOOD UREA NITROGEN 15 MG/DL (9-23); CALCIUM LEVEL 8.8 MG/DL (8.5-10.1); CARBON DIOXIDE LEVEL 25 MMOL/L (20-31); CHLORIDE LEVEL 104 MMOL/L (98-107); CREATININE FOR GFR 0.71 MG/DL (0.55-1.30); GLOMERULAR FILTRATION RATE > 60.0 (>60); GLUCOSE, FASTING 91 MG/DL (60-100); POTASSIUM SERUM 3.8 MMOL/L (3.5-5.1); SODIUM LEVEL 139 MMOL/L (136-145)
[2024-03-07 23:52] VITALS: BP 130/72; TEMP 98.1; O2SAT 98
== END 2024-03-07 23:53 | disposition home or self-care (01) ==
LOC: M ED 19:40
DX: O20.0 Threatened abortion (principal); O26.852 Spotting complicating pregnancy, second trimester; N93.9 Abnormal uterine and vaginal bleeding, unspecified; Z3A.14 14 weeks gestation of pregnancy

== ENCOUNTER → 2024-03-23 | Outpatient (CLI) | payer BC ==
[2024-03-23 15:43] LABS: HEMATOCRIT 36.5 % (36.0-47.0); HEMOGLOBIN 12.5 g/dl (12.0-15.5); MEAN CORPUSCULAR HEMOGLOBIN 29.7 pg (27.0-33.0); MEAN CORPUSCULAR HGB CONC 34.2 g/dl (32.0-36.5); MEAN CORPUSCULAR VOLUME 86.7 fl (80.0-96.0); PLATELET COUNT, AUTOMATED 304 10^3/uL (150-450); RED BLOOD COUNT 4.21 10^6/uL (4.00-5.40); WHITE BLOOD COUNT 11.8 10^3/uL (4.0-10.0)
[2024-03-23 16:08] LABS: THYROID STIMULATING HORMONE 1.082 uIU/ML (0.55-4.78)
[2024-03-23 16:21] LABS: FREE T4 1.24 NG/DL (0.89-1.76)
[2024-03-23 16:34] LABS: HIV 1&2 SCREEN NEGATIVE (NEGATIVE)
[2024-03-23 16:42] LABS: HEPATITIS C VIRUS ABY INDEX < 0.02 INDEX (<0.8)
[2024-03-23 17:17] LABS: GC DNA AMPLIFICATION NEGATIVE (NEGATIVE)
== END ==
LOC: M PLALAB 14:20
PROVIDERS: ATTEND Obstetrics & Gynecology
DX: Z34.92 Encounter for supervision of normal pregnancy, unspecified, second trimester (principal)

== ENCOUNTER → 2024-04-13 | Outpatient (CLI) | payer BC | LOC: M WHC 09:55 | PROVIDERS: ATTEND Obstetrics & Gynecology | DX: Z34.92 Encounter for supervision of normal pregnancy, unspecified, second trimester (principal); Z3A.19 19 weeks gestation of pregnancy ==

== ENCOUNTER → 2024-05-03 | Outpatient (CLI) | payer BC | LOC: M WHC 06:42 | PROVIDERS: ATTEND Obstetrics & Gynecology | DX: Z34.82 Encounter for supervision of other normal pregnancy, second trimester (principal); Z3A.22 22 weeks gestation of pregnancy ==

== ENCOUNTER → 2024-05-20 | Outpatient (CLI) | payer BC ==
[2024-05-20 14:19] LABS: HEMATOCRIT 36.6 % (36.0-47.0); HEMOGLOBIN 12.2 g/dl (12.0-15.5); MEAN CORPUSCULAR HEMOGLOBIN 29.9 pg (27.0-33.0); MEAN CORPUSCULAR HGB CONC 33.3 g/dl (32.0-36.5); MEAN CORPUSCULAR VOLUME 89.7 fl (80.0-96.0); PLATELET COUNT, AUTOMATED 267 10^3/uL (150-450); RED BLOOD COUNT 4.08 10^6/uL (4.00-5.40); WHITE BLOOD COUNT 9.3 10^3/uL (4.0-10.0)
[2024-05-20 14:49] LABS: GLUCOSE CHALLENGE TEST 1 HOUR 150 MG/DL (LESS THAN 140)
[2024-05-20 15:25] LABS: HIV 1&2 SCREEN NEGATIVE (NEGATIVE)
[2024-05-20 15:34] LABS: HEPATITIS C VIRUS ABY INDEX 0.03 INDEX (<0.8)
[2024-05-20 15:41] LABS: Trichomonas vaginalis (AMP) NOT DETECTED (NEGATIVE)
[2024-05-20 16:04] LABS: GC DNA AMPLIFICATION NEGATIVE (NEGATIVE)
== END ==
LOC: M PLALAB 09:24
PROVIDERS: ATTEND Obstetrics & Gynecology
DX: Z34.92 Encounter for supervision of normal pregnancy, unspecified, second trimester (principal); Z3A.00 Weeks of gestation of pregnancy not specified

== ENCOUNTER → 2024-06-07 | Outpatient (CLI) | payer BC | LOC: M LAB 06:47 | PROVIDERS: ATTEND Obstetrics & Gynecology | DX: O99.810 Abnormal glucose complicating pregnancy (principal); Z3A.00 Weeks of gestation of pregnancy not specified ==

== ENCOUNTER → 2024-06-17 | Outpatient (CLI) | payer BC | LOC: M WHC 14:11 | PROVIDERS: ATTEND Obstetrics & Gynecology | DX: Z34.82 Encounter for supervision of other normal pregnancy, second trimester (principal) ==

== ENCOUNTER → 2024-08-09 | Outpatient (CLI) | payer BC | LOC: M WHC 08:45 | PROVIDERS: ATTEND Obstetrics & Gynecology | DX: O24.410 Gestational diabetes mellitus in pregnancy, diet controlled (principal); Z3A.36 36 weeks gestation of pregnancy ==

== ENCOUNTER → 2024-08-11 | Outpatient (REF) | payer BC | LOC: M PLALAB 09:00 | PROVIDERS: ATTEND Obstetrics & Gynecology | DX: O24.410 Gestational diabetes mellitus in pregnancy, diet controlled (principal); Z3A.36 36 weeks gestation of pregnancy ==